=== PATIENT | male | born 1955 | race Hispanic/Latino ===

== ENCOUNTER 2021-02-14 08:52 | Outpatient (CLI) | payer MEDICARE ==
[2021-02-14 09:33] LABS: Blood Urea Nitrogen 18 mg/dL (9-20)
--- NOTE | 2021-02-14 10:41 | Cat Scan Report ---
CTA CHEST WITH IV CONTRAST INDICATION: DILATED AORTIC ROOT OMNI 350 100 ML . TECHNIQUE: Axial CT images were obtained through the chest after injection of IV contrast. 3 plane MIP reconstru ctions were produced. All CT scans at this location are performed using CT dose reduction for ALARA b y means of automated exposure control. COMPARISON: None available. FINDINGS: Pulmonary Arteries: No pulmonary emboli. Thoracic Aorta: Contrast was timed for evaluation of the pulmonary arterial tree. Accounting for this , thoracic aorta is unremarkable. AP diameter of the mid ascending thoracic aorta is 3.4 cm on axial image 4. Aortic root measures 3.3 cm on coronal image 40. Heart: Normal. Lungs: No acute air space or interstitial disease. Pleura: No pleural effusion. No pneumothorax. There is a 4.4 x 2.6 cm pleural lipoma in the anterolat eral right hemithorax on axial image 45. Lymph Nodes: No significant adenopathy. Additional Findings: None. Upper Abdomen: No acute findings. Skeletal Structures: No significant osseous abnormality. IMPRESSION: 1. No aneurysmal dilatation is seen within the thoracic aorta. 2. No acute findings. 3. 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 Signer Name: Nato Guillory MD Signed: 02/14/2021 10:37 AM Workstation Name: [id number]
== END 2021-02-14 08:53 | disposition home or self-care (01) ==
LOC: CT 08:52
PROVIDERS: ATTEND Internal Medicine
DX: I77.810 Thoracic aortic ectasia (principal); E78.2 Mixed hyperlipidemia
CPT/HCPCS: 36415; 71275; 82565; 84520; Q9967